=== PATIENT | male | born 1990 | race Caucasian/White ===

== ENCOUNTER 2018-08-05 14:06 | Emergency (ER) | payer OTHER ==
--- NOTE | 2018-08-05 14:42 | ED.PDOC ---
History of Present Illness - General Chief Complaint: Cardiovascular Problem Stated Complaint: low heart rate Time Seen by Provider: 08/05/18 14:34 Source: RN notes reviewed, family Additional Information: 28 YEAR OLD WITH DOWNS SYNDROME BROUGHT TO THE ER FOR EVALUATION OF ASYMPTOMATIC BRADYCARDIA FAMILY HAD NOTED HIS HEART RATE HAS BEEN IN THE 60 S FOR THE LAST FEW DAYS HE IS ON VALPROIC ACID AND KEPPRA FOR SZ FAMILY IS WONDERING IF THE MEDICATION LEVEL HAS ANYTHING TO DO WITH IT HE HAS HAD CARDIAC SURGERY FOR PDA AND VSD A LITTLE BOY AND HAS NO CARDIOLOGY FOLLOW UP IN THE RECENT [address] CHAN IN [place] FOR HIS SEIZURES - History of Present Illness Allergies/Adverse Reactions: Allergies Phenytoin [From Dilantin] Allergy (Verified 08/05/18 14:23) Home Medications: Ambulatory Orders Valproic Acid Syrup [Depakene Syrup] 250 mg PO BID 08/05/18 levETIRAcetam SUSPENSION [Keppra] 1,000 mg PO DAILY 08/05/18 levETIRAcetam SUSPENSION [Keppra] 1,500 mg PO BEDTIME 08/05/18 Review of Systems - Review of Systems Constitutional: States: no symptoms reported EENTM: States: no symptoms reported Respiratory: States: no symptoms reported Cardiology: States: no symptoms reported Gastrointestinal/Abdominal: States: no symptoms reported Genitourinary: States: no symptoms reported Musculoskeletal: States: no symptoms reported Skin: States: no symptoms reported Neurological: States: see HPI Endocrine: States: no symptoms reported Hematologic/Lymphatic: States: no symptoms reported Past Medical History (General) - Patient Medical History Hx Seizures: Yes Hx Asthma: Yes Hx Congestive Heart Failure: No Surgical History: tonsillectomy - Vaccination History Hx Influenza Vaccination: No - Social History Hx Tobacco Use: No Family Medical History - Family History Mother Family History: Unknown Living Status: Still Living Physical Exam - Physical Exam General Appearance: Alert, Comfortable Eye Exam: bilateral normal Ears, Nose, Throat: hearing grossly normal, normal ENT inspection, normal pharynx Neck: non-tender, full range of motion, supple Respiratory: chest non-tender, lungs clear, normal breath sounds, no respiratory distress Cardiovascular/Chest: normal peripheral pulses, regular rate, rhythm, no edema, no gallop, no JVD Gastrointestinal/Abdominal: normal bowel sounds, non tender, soft, no organomegaly, no pulsatile mass Back Exam: normal inspection, no CVA tenderness, no vertebral tenderness Neurologic: utility mechanic II-XII nml as tested, no motor/sensory deficits, alert, oriented x 3 Progress - Results/Orders Results/Orders: patient was observed here for few hours no symptomatic bradycardia noted He was active playful no distress Mom wants to take him home Valium was not effective as a oral sedative He will followed as needed Mom was instructed on what to look in a Symptomatic Bradycardia Departure - Departure Clinical Impression: Bradycardia, Down's syndrome Time of Disposition: 16:26 Disposition: Discharge to Home or Self Care Condition: Good Departure Forms: ED Discharge - Pt. Copy, Patient Portal Self Enrollment Instructions: DI for Chest Pain Diet: resume usual diet Referrals: Yesi Cast MD [Primary Care Provider] - 1-2 Weeks Home Medications: Ambulatory Orders Valproic Acid Syrup [Depakene Syrup] 250 mg PO BID 08/05/18 levETIRAcetam SUSPENSION [Keppra] 1,000 mg PO DAILY 08/05/18 levETIRAcetam SUSPENSION [Keppra] 1,500 mg PO BEDTIME 08/05/18
[2018-08-05] MEDS ORDERED: diazePAM 5 MG TAB PO ONE (14:43)
== END 2018-08-05 16:36 | disposition home or self-care (01) ==
LOC: ER 14:06
DX: R00.1 Bradycardia, unspecified (principal); Q90.9 Down syndrome, unspecified; R56.9 Unspecified convulsions; J45.909 Unspecified asthma, uncomplicated; Z79.899 Other long term (current) drug therapy; Z88.8 Allergy status to other drugs, medicaments and biological substances